=== PATIENT | female | born 1985 | race Caucasian/White ===

== ENCOUNTER 2018-04-27 14:28 | Emergency (ER) | payer MEDICAID ==
--- NOTE | 2018-04-27 15:10 | EDPHY ---
H & P Stated Complaint: back/rib pain Time Seen by Provider: 04/27/18 15:05 - Medical/Surgical History Hx Asthma: No Hx Chronic Respiratory Disease: No Hx Diabetes: No Hx Cardiac Disease: No Hx Renal Disease: No Hx Cirrhosis: No Hx Alcoholism: No Hx HIV/AIDS: No Hx Splenectomy or Spleen Trauma: No - Social History Smoking Status: Former smoker Constitutional: Initial Vital Signs Temperature (C) 36.8 C 04/27/18 14:35 Heart Rate 81 04/27/18 14:35 Respiratory Rate 16 04/27/18 14:35 Blood Pressure 106/70 04/27/18 14:35 O2 Sat (%) 100 04/27/18 14:35 O2 Delivery Mode Room Air Allergies/Adverse Reactions: No Known Allergies Allergy (Unverified 04/27/18 14:34) Home Medications: Medication Instructions Recorded Estradiol 04/27/18 Medical Decision Making - Diagnostics Imaging: I viewed and interpreted images myself ED Course/Re-evaluation: CHIEF COMPLAINT: Back pain, sore throat HISTORY OF PRESENT ILLNESS: The patient is a 33 y/o male transitioning to female complaining of bilateral mid back pain and sore throat for the last 1-2 days. She has associated mild sore throat. She denies pleuritic pain, cough, fever, chills, malaise, cold symptoms, urinary symptoms, abdominal pain, vomiting, or diarrhea. She takes estradiol. REVIEW OF SYSTEMS: A comprehensive 10 system review of systems is otherwise negative aside from elements mentioned in the history of present illness and medical decision making. PHYSICAL EXAM: HR, BP, O2 Sat, RR. Temp noted General Appearance: Alert, well hydrated, appropriate, and non-toxic appearing. Head: Atraumatic without scalp tenderness or obvious injury Eyes: Pupils equal, round, reactive to light and accommodation, EOMI, no trauma , no injection. Ears: Clear bilaterally, no perforation, normal landmarks Nose: Atraumatic, no rhinorrhea, clear. Throat: There is no erythema or exudates, no lesions, normal tonsils, mucus membranes moist. Neck: Supple, non-tender, no lymphadenopathy. Respiratory: No retractions, no distress, no wheezes, and no accessory muscle use. Lungs are clear to auscultation bilaterally. Cardiovascular: Regular rate and rhythm, no murmurs, rubs, or gallops. Good capillary refill all extremities. Gastrointestinal: Abdomen is soft, non-tender, non-distended, no masses, no rebound, no guarding, no peritoneal signs. Musculoskeletal: Normal active ROM of all extremities, atraumatic. Neurological: Alert, appropriate, and interactive. The patient has non-focal cranial nerves, motor, sensory, and cerebellar exam. Skin: No rashes, good turgor, no nodules on palpation. PAST MEDICAL HISTORY: Transgender on estradiol. PAST SURGICAL HISTORY: Denies SOCIAL HISTORY: Former smoker. Identifies as female. DIAGNOSTICS/PROCEDURES/CRITICAL CARE TIME: Chest x-ray: negative DIFFERENTIAL DIAGNOSIS: The differential diagnosis for the patient's back pain included but was not limited to musculoskeletal pain, epidural abscess, herniated disk, spinal fracture, and intra-abdominal causes including urinary system. MEDICAL DECISION MAKING: This is a transgender 33 y/o female on estradiol who presents with a 1-2 day history of bilateral mid back pain and mild sore throat. Exam is unremarkable. Breath sounds are clear. She is afebrile and has no infectious signs on exam. Though I have low suspicion for PE, due to hormone use and location of pain will order d-dimer in addition to chest x-ray. Chest x-ray is negative. D-dimer is normal. Reassessed patient and discussed findings. Suspect pain is most likely musculoskeletal in nature. Recommended treatment with NSAIDs and outpatient follow up as needed. Return precautions discussed. She is comfortable with this plan. - Data Points Laboratory Results: 04/27/18 15:29 D-Dimer 0.27 ug/mLFEU ug/mLFEU (0.00-0.50) Departure - Departure Disposition: Home, Routine, Self-Care Clinical Impression: Back pain Qualifiers: Back pain location: thoracic back pain Chronicity: acute Back pain laterality: bilateral Qualified Code(s): M54.6 - Pain in thoracic spine Condition: Good Instructions: Back Pain (ED) Additional Instructions: Adult Pain & Fever Control: We recommend Acetaminophen (Tylenol) and Ibuprofen (Motrin,Advil) for pain and fever control. When fever is high or pain severe, both drugs can be used at the same time, but at different intervals. Please note the time differences. Your dose is: Acetaminophen 650mg every 4 to 6 hours Ibuprofen 800mg every 8 hours with food Note: do not take Acetaminophen with Hydrocodone (Vicodin, Lortab) or Oxycodone (Percocet). These medications also contain Acetaminophen. No more than 3000mg of Acetaminophen should be taken in 24 hours (for an adult). Follow up with primary care provider as needed for unimproved symptoms over the next few days. Return for worsening of condition. Referrals: [facility],. [Clinic] - As per Instructions Report Scribed for: Jorge Marks Report Scribed by: Brittany Bernal Date of Report: 04/27/18 Time of Report: 15:12
[2018-04-27 16:22] VITALS: BP 110/74
== END 2018-04-27 16:22 | disposition home or self-care (01) ==
DX: M54.6 Pain in thoracic spine (principal)